=== PATIENT | female | born 1990 ===

== ENCOUNTER 2017-05-30 10:07 | Emergency (ER) | payer OTHER ==
[2017-05-30 10:12] VITALS: RESP 18
[2017-05-30] MEDS ORDERED: Apap-Butalbital-Caffeine 325-50-40mg Tab PO STA (11:10)
--- NOTE | 2017-05-30 11:11 | C.PDOC ---
History Of Present Illness 27 y/o female with history of migraines and chronic headaches presents to ER with complaints of generalized headache. She states she gets a headache almost every day for 6 years. The pain starts in back and radiates to front. She has no relief with Excedrin. She also reports occasional nausea, but no nausea today. This is not the worst headache of her life. Denies dizziness, visual changes, new weakness or numbness, chest pain, SOB, nausea, vomiting. Time Seen by Provider: 05/30/17 10:41 Chief Complaint (Nursing): Dizziness/Lightheaded History Per: Patient History/Exam Limitations: no limitations Onset/Duration Of Symptoms: Persistent Current Symptoms Are (Timing): Still Present Quality: "Pain" Associated Symptoms: denies: Blurred Vision, Nausea, Vomiting Recent travel outside of the [place]: No Past Medical History Reviewed: Historical Data, Nursing Documentation, Vital Signs Vital Signs: Last Vital Signs Temp 98.1 F 05/30/17 11:30 Pulse 78 05/30/17 11:30 Resp 18 05/30/17 11:30 BP 118/78 05/30/17 11:30 Pulse Ox 96 05/30/17 13:17 - Medical History PMH: Migraine Surgical History: No Surg Hx Family History: States: Unknown Family Hx - Social History Hx Alcohol Use: No Hx Substance Use: No Review Of Systems Except As Marked, All Systems Reviewed And Found Negative. Constitutional: Negative for: Fever, Chills Cardiovascular: Negative for: Chest Pain Respiratory: Negative for: Cough, Shortness of Breath Skin: Negative for: Rash Neurological: Positive for: Headache. Negative for: Weakness, Numbness, Dizziness Physical Exam - Physical Exam Appears: Non-toxic, No Acute Distress Skin: Normal Color, Warm, Dry Head: Atraumatic, Normacephalic Eye(s): bilateral: Normal Inspection, PERRL, EOMI Ear(s): Bilateral: Normal Nose: Normal Oral Mucosa: Moist Throat: Normal, No Erythema, No Exudate Neck: Normal ROM, Supple Chest: Symmetrical Cardiovascular: Rhythm Regular Respiratory: Normal Breath Sounds, No Rales, No Rhonchi, No Wheezing Gastrointestinal/Abdominal: Soft, No Tenderness Back: Normal Inspection Extremity: Normal ROM, Capillary Refill (< 2 sec.) Neurological/Psych: Oriented x3, Normal Speech, Normal Cranial Nerves, No Cerebellar Signs, Normal Motor, Normal Sensation ED Course And Treatment O2 Sat by Pulse Oximetry: 96 (RA) Pulse Ox Interpretation: Normal Medical Decision Making Medical Decision Making: Treated with Fioricet. Patient reports improvement of headache on re- evaluation. Advised follow up with PMD/clinic. Disposition Counseled Patient/Family Regarding: Diagnosis, Need For Followup, Rx Given - Disposition Referrals: [facility] [Outside] [facility] [Outside] [facility] [Outside] Disposition: HOME/ ROUTINE Disposition Time: 11:10 Condition: GOOD Additional Instructions: Vaya a ramirez mdico o la clnica en 2-5 [place] sin falta, para mas evaluacin. [facility] los medicamentos ritika indicado. Volver a la rebeca de emergencia en cualquier momento si los sntomas persisten o empeoran. Prescriptions: Acetaminophen/Butalbital/Caf [Fioricet] 1 tab PO TID PRN #20 tab PRN Reason: Headache Instructions: Acute Headache (GEN) Forms: [employer] (Nigerien) Print Language: KOSOVAN - POA Present On Arrival: None - Clinical Impression Clinical Impression: Headache - PA / [employer] / Resident Statement MD/DO has reviewed & agrees with the documentation as recorded. - Scribe Statement The provider has reviewed the documentation as recorded by the Scribe SM All medical record entries made by the Scribe were at my direction and personally dictated by me. I have reviewed the chart and agree that the record accurately reflects my personal performance of the history, physical exam, medical decision making, and the department course for this patient. I have also personally directed, reviewed, and agree with the discharge instructions and disposition.
[2017-05-30] MEDS ORDERED: Apap-Butalbital-Caffeine 325-50-40mg Tab ONE (11:30)
[2017-05-30 11:31] VITALS: BP 118/78; PULSE 78; TEMP 98.1
[2017-05-30 13:17] VITALS: O2SAT 96
== END 2017-05-30 11:32 | disposition home or self-care (01) ==
LOC: C.ER 10:07
DX: R51 Headache (principal)